=== PATIENT | male | born 1995 | race African-American/Black ===

== ENCOUNTER 2019-09-09 12:22 | Emergency (ER) | payer BC ==
[~2019-09-09] VITALS: Ht 177.8 cm; Wt 63.6 kg
[2019-09-09 12:38] VITALS: BP 138/86
[2019-09-09] MEDS ORDERED: NAPROXEN 500 MG TABLET PO STA (12:56)
--- NOTE | 2019-09-09 13:25 | RAD ---
3 views of the right knee HISTORY: Pain after wrestling injury AP lateral oblique views The visualized osseous structures appear normal. IMPRESSION: Negative examination. Electronically signed by: Zafar King III, MD (09/09/2019 1:22 PM) [id number]
[2019-09-09] MEDS ORDERED: NAPR-514 PO (13:40)
--- NOTE | 2019-09-09 13:40 | PHYS DOC ---
Past Medical History Past Medical History: No Pertinent History Past Surgical History: Other Additional Past Surgical Histo: R FEMUR ORIF Smoking Status: Current Every Day Smoker Alcohol Use: Heavy Additional Information: DRINKS DAILY, 6 PACK OF BEER General Adult EDM: Chief Complaint: KNEE INJURY HPI: HPI: Patient is a 24 year old AA male, accompanied by his mother, who presents to the ER with complaints of right anterior knee pain after wresting with a family member yesterday evening. Pt states he cannot put all of his weight on his right leg because the pain is too much to handle. He currently rates the pain a 5/10 on the pain scale, the pain does not radiate, it is worse with palpation and movement. He denies taking any medication prior to arrival for the pain. Review of Systems: Review of Systems: Constitutional: Denies fever or chills. [] Musculoskeletal: see HPI Integument: Denies rash. [] Neurologic: Denies focal weakness or sensory changes. [] Psychiatric: Denies depression or anxiety. [] Heart Score: Risk Factors: Risk Factors: DM, Current or recent (<one month) smoker, HTN, HLP, family history of CAD, obesity. Risk Scores: Score 0 - 3: 2.5% MACE over next 6 weeks - Discharge Home Score 4 - 6: 20.3% MACE over next 6 weeks - Admit for Clinical Observation Score 7 - 10: 72.7% MACE over next 6 weeks - Early Invasive Strategies Current Medications: Current Medications Medications (Trade) Dose Ordered Sig/Joelle Start Time Stop Time Status Last Admin Dose Admin Naproxen (Naprosyn) 500 mg 1X STAT 09/09/19 12:56 09/09/19 12:59 DC 09/09/19 13:15 500 MG Allergies: Allergies: Allergies Coded Allergies Type Severity Reaction Last Updated Verified Penicillins Allergy Unknown UNKNOWN 09/09/19 Yes Physical Exam: PE: Constitutional: Well developed, well nourished, no acute distress, non-toxic appearance. [] HENT: Normocephalic, atraumatic, bilateral external ears normal, nose normal. [] Eyes: PERRLA, EOMI, conjunctiva normal, no discharge. [] Neck: Normal range of motion, no stridor. [] Cardiovascular:Heart rate regular rhythm Lungs & Thorax: Respirations even and unlabored, no retractions, no respiratory distress Skin: Warm, dry, no erythema, no rash. [] Extremities:R knee: anterior patellar TTP, no crepitus, no obvious deformity, negative anterior and posterior drawer testing, no cyanosis, ROM limited due to pain, no edema. [] Neurologic: Alert and oriented X 3, no focal deficits noted. [] Psychologic: Affect normal, judgement normal, mood normal. [] Current Patient Data: Vital Signs: Vital Signs Date Time Temp Pulse Resp B/P (MAP) Pulse Ox O2 Delivery O2 Flow Rate FiO2 09/09/19 12:38 98.5 65 17 138/86 (103) 99 Room Air 98.5 EKG: EKG: [] Radiology/Procedures: Radiology/Procedures: PROCEDURE: KNEE RIGHT 3V 3 views of the right knee HISTORY: Pain after wrestling injury AP lateral oblique views The visualized osseous structures appear normal. IMPRESSION: Negative examination. [] Course & Med Decision Making: Course & Med Decision Making Pertinent Labs and Imaging studies reviewed. (See chart for details) [] Dragon Disclaimer: Dragon Disclaimer: This electronic medical record was generated, in whole or in part, using a voice recognition dictation system. Departure Departure Impression: Primary Impression: Right anterior knee pain Disposition: HOME, SELF-CARE Condition: STABLE Referrals: NO PCP (PCP) BARTOLOME CEBALLOS MD Patient Instructions: Knee Pain, [id number] Additional Instructions: Fill prescription(s) and use as directed. Recommend application of ice, elevation, and rest of affected extremity. Wear the Franki wrap that was placed as needed for comfort. Follow-up with Dr. Ceballos if symptoms persist. Return to the ER if your symptoms worsen. Scripts Naproxen (NAPROXEN) 500 Mg Tablet 1 TAB PO BID PRN for PAIN for 10 Days, #20 TAB 0 Refills Prov: DELMA ROBBINS APRN 09/09/19 Justicifation of Admission Dx: Justifications for Admission: Justification of Admission Dx: N/A DELMA ROBBINS APRN Sep 09, 2019 13:40
== END 2019-09-09 13:55 | disposition home or self-care (01) ==
LOC: ER 12:22
DX: M25.561 Pain in right knee (principal); F17.200 Nicotine dependence, unspecified, uncomplicated; Z88.0 Allergy status to penicillin
CPT/HCPCS: 73562; 99283

== ENCOUNTER 2019-09-12 15:57 | Emergency (ER) | payer BC ==
[~2019-09-12] VITALS: Ht 177.8 cm; Wt 68.1 kg
[~2019-09-12 15:57] MED LIST: NAPR-514 PO
[2019-09-12 17:10] VITALS: BP 130/77
--- NOTE | 2019-09-12 17:26 | PHYS DOC ---
Past Medical History Past Medical History: No Pertinent History Past Surgical History: Other Additional Past Surgical Histo: R FEMUR ORIF Smoking Status: Current Every Day Smoker Alcohol Use: Heavy General Adult EDM: Chief Complaint: KNEE INJURY HPI: HPI: Patient is a 24 year old male who presents with September 07 he was wrestling with family and twisted his right knee. He complains of right anterior knee pain. He was seen here in the ED and given an Franki bandage and naproxen. He states the pain has continued and he is unable to work as he has to go up and down stairs at his job. He states that the Franki bandage does not seem to help but he is also been keeping it elevated with ice. He states that he does not think that he got any follow-up care information. Patient is here today for continued pain and follow-up care and a work note. Rates his pain a 5 out of 10 without radiation. He is ambulatory with a steady gait. Patient is able to extend the knee out about 45 degrees but states after that is very painful. He can bend the knee fully. Review of Systems: Review of Systems: Constitutional: Denies fever or chills. [] Eyes: Denies change in visual acuity. [] HENT: Denies nasal congestion or sore throat. [] Respiratory: Denies cough or shortness of breath. [] Cardiovascular: Denies chest pain or edema. [] GI: Denies abdominal pain, nausea, vomiting, bloody stools or diarrhea. [] : Denies dysuria. [] Musculoskeletal: Denies back pain. Right knee joint pain. [] Integument: Denies rash. [] Neurologic: Denies headache, focal weakness or sensory changes. [] Endocrine: Denies polyuria or polydipsia. [] Lymphatic: Denies swollen glands. [] Psychiatric: Denies depression or anxiety. [] Heart Score: Risk Factors: Risk Factors: DM, Current or recent (<one month) smoker, HTN, HLP, family history of CAD, obesity. Risk Scores: Score 0 - 3: 2.5% MACE over next 6 weeks - Discharge Home Score 4 - 6: 20.3% MACE over next 6 weeks - Admit for Clinical Observation Score 7 - 10: 72.7% MACE over next 6 weeks - Early Invasive Strategies Allergies: Allergies: Allergies Coded Allergies Type Severity Reaction Last Updated Verified Penicillins Allergy Unknown UNKNOWN 7/4/20 Yes Physical Exam: PE: Constitutional: Well developed, well nourished, no acute distress, non-toxic appearance. [] HENT: Normocephalic, atraumatic, bilateral external ears normal, oropharynx moist, no oral exudates, nose normal. [] Eyes: PERRLA, EOMI, conjunctiva normal, no discharge. [] Neck: Normal range of motion, no tenderness, supple, no stridor. [] Cardiovascular:Heart rate regular rhythm, no murmur [] Lungs & Thorax: Bilateral breath sounds clear to auscultation [] Abdomen: Bowel sounds normal, soft, no tenderness, no masses, no pulsatile m asses. [] Skin: Warm, dry, no erythema, no rash. [] Back: No tenderness, no CVA tenderness. [] Extremities: No tenderness, no cyanosis, no clubbing, limited right knee ROM due to pain, no edema. [] Neurologic: Alert and oriented X 3, normal motor function, normal sensory function, no focal deficits noted. [] Psychologic: Affect normal, judgement normal, mood normal. [] EKG: EKG: [] Radiology/Procedures: Radiology/Procedures: [] Course & Med Decision Making: Course & Med Decision Making Pertinent Labs and Imaging studies reviewed. (See chart for details) Skin pink warm and dry. Popliteal pulse strong present. No swelling, deformity, redness or heat to the joint. No laxity in the joint. Denies any numbness or tingling, color skin change, skin temperature change. No unilateral swelling. Patient will be put in a knee immobilizer. I will give him a note for work and he is to follow-up with orthopedics as soon as possible. Patient states his understanding. His x-ray from September 08 showed no acute findings. No tenderness to the knee. [] Dragon Disclaimer: Dragon Disclaimer: This electronic medical record was generated, in whole or in part, using a voice recognition dictation system. Departure Departure Impression: Primary Impression: Right anterior knee pain Disposition: HOME, SELF-CARE Condition: STABLE Referrals: NO PCP (PCP) BARTOLOME MCCLELLAN MD Patient Instructions: Knee Sprain Additional Instructions: Follow-up with orthopedic as I referred you to. Continue taking naproxen. Rest the extremity. Use ice. Justicifation of Admission Dx: Justifications for Admission: Justification of Admission Dx: N/A MAX ALMANZA FILLER WIPER Sep 12, 2019 17:26
== END 2019-09-12 17:49 | disposition home or self-care (01) ==
LOC: ER 15:57
DX: M25.561 Pain in right knee (principal); F17.200 Nicotine dependence, unspecified, uncomplicated; F10.10 Alcohol abuse, uncomplicated; Z98.890 Other specified postprocedural states; Z88.0 Allergy status to penicillin
CPT/HCPCS: 29505; 99283

== ENCOUNTER → 2019-10-18 | Outpatient (CLI) | payer BC ==
--- NOTE | 2019-10-18 15:47 | KCIC ---
STUDY: MRI of the right knee without contrast INDICATION: Knee pain after a twisting injury. Swelling. COMPARISON: 09/09/2019 radiographs TECHNIQUE: Multiplanar MR imaging of the right knee performed without the use of intravenous or intra-articular contrast. FINDINGS: Menisci: No discrete meniscal tear or meniscal extrusion. Cruciate ligaments: The PCL is intact. The ACL parallels Blumensaat's line but is irregular in signal and may be partially torn. Collateral ligaments: Mildly thickened but intact proximal FCL. No complete ligamentous disruption at the lateral knee. Intact MCL. Tendons: The extensor mechanism is intact. No disruption of the additional tendons at the knee. Cartilage: Patellofemoral: Chondrosis at the medial patellar facet and median ridge with subjacent marrow edema the extent of which is out of proportion to degree of chondrosis suggesting osteochondral injury. No displaced chondral fragment. The trochlear cartilage appears intact. Lateral compartment: Osteochondral injury at the periphery of the weightbearing lateral femoral condyle, image 12 series 8. The tibial plateau cartilage appears intact. There is likely localized chondrosis at the proximal nonweightbearing lateral femoral condyle such as seen on image 18 series 5. Medial compartment: Partial-thickness chondrosis at the proximal nonweightbearing medial femoral condyle. Bones: Extensive lateral femoral condyle marrow edema extending to the intercondylar notch. Much less pronounced marrow edema at the periphery of the lateral tibial plateau. Osteochondral fracture at the far peripheral margin of the lateral femoral condyle. Miscellaneous: The MPFL does not appear disrupted with only mild edema-like signal at its patellar attachment. Mild edema of Hoffa's fat. Small amount of knee joint fluid. Small Leslie's cyst. Upper limits of normal TT-TG distance of 1.8 cm. Borderline patella milena. IMPRESSION: 1. Extensive marrow edema centered within the lateral femoral condyle. There is also marrow edema at the medial patella and faintly at the periphery of the lateral tibial plateau. Small osteochondral impaction fracture at the periphery of the lateral femoral condyle. Note is made that the degree of patellar edema is out of proportion to the extent of overlying chondrosis raising the question of osteochondral injury at this location as well. Given the mixed pattern of edema, the patient may have experience a pivot-shift type injury with superimposed lateral patellar dislocation/relocation however the MPFL is not disrupted. There is a mildly increased TT-TG distance and borderline patella milena which could predispose to patellar dislocation. 2. Abnormal signal of the ACL but the ligament is not lax and intact traversing fibers remain visualized. A partial tear is a consideration. The PCL is intact as are the menisci. 3. Partial thickness chondrosis at the proximal nonweightbearing medial and lateral femoral condyles. Previously described osteochondral injury at the lateral femoral condyle and presumably at the medial patellar facet without a displaced chondral fragment. 4. Small amount of knee joint fluid and a small Leslie's cyst. Electronically signed by: SIMONE HANNON MD (10/18/2019 3:44 PM) [id number]
== END | disposition home or self-care (01) ==
LOC: KCIC MRI 13:25
PROVIDERS: ATTEND Orthopaedic Surgery
DX: M25.461 Effusion, right knee (principal); M71.21 Synovial cyst of popliteal space [Baker], right knee
CPT/HCPCS: 73721